=== PATIENT | female | born 1945 | race Caucasian/White ===

== ENCOUNTER 2017-03-29 06:40 | Inpatient (IN) | payer MEDICARE, OTHER ==
[2017-03-29] MEDS ORDERED: Meropenem 500 MG SDV ONE (06:43)
[2017-03-29] MEDS ORDERED: Acetaminophen 500 MG Tab PO ONE (07:05)
[2017-03-29] MEDS ORDERED: Scopolamine 1.5 MG Transdermal Patch TOP ONE (07:05)
[2017-03-29] MEDS ORDERED: Scopolamine 1.5 MG Transdermal Patch TOP SCH (07:15)
[2017-03-29] MEDS ORDERED: Dextrose 5%-Lactated Ringers 1,000 ML IV SCH ×2 (07:30→14:30)
[2017-03-29] MEDS ORDERED: Naloxone 0.4 MG/ML SDV IVPUSH PRN ×2 (07:46→18:43)
[2017-03-29] MEDS ORDERED: HYDROmorphone/Normal Saline 15 MG/30 ML PCA IV PRN ×2 (07:46→18:43)
[2017-03-29] MEDS: Celecoxib 200 MG Cap PO ONE ×2 (07:51→08:30)
[2017-03-29] MEDS ORDERED: fentaNYL 250 MCG/5 ML SDV ONE ×2 (07:52→10:52)
[2017-03-29] MEDS ORDERED: Dexamethasone 4 MG/ML SDV ONE (07:53)
[2017-03-29] MEDS ORDERED: Rocuronium 50 MG/5 ML Vial ONE (07:53)
[2017-03-29] MEDS ORDERED: Neostigmine Methylsulfate 1 MG/ML 5 ML Syringe ONE (07:53)
[2017-03-29] MEDS ORDERED: Ondansetron 4 MG/2 ML SDV ONE (07:53)
[2017-03-29] MEDS ORDERED: Glycopyrrolate 0.2 MG/ML 5 ML MDV ONE (07:53)
[2017-03-29] MEDS ORDERED: Propofol 200 MG/20 ML SDV ONE (07:53)
[2017-03-29] MEDS ORDERED: Succinylcholine 200 MG/10 ML MDV ONE (07:53)
[2017-03-29] MEDS ORDERED: Naloxone 0.4 MG/ML SDV IV PRN (07:54)
[2017-03-29] MEDS ORDERED: Acetaminophen Soln 650 MG/20.3 ML UD Cup PO ONE (08:45)
[2017-03-29] MEDS: cefOXitin 2 GM in Sodium Chloride 0.9% 50 ML IV ONE ×2 (10:07→10:32)
[2017-03-29] MEDS ORDERED: Lactated Ringers 1,000 ML ONE (11:05)
[2017-03-29] MEDS: Bupivacaine 0.5%/EPINEPHrine 1:200,000 50 ML MDV ONE ×2 (11:12→11:37)
[2017-03-29] MEDS ORDERED: hydrOXYzine HCl 100 MG/2 ML SDV IM ONE (12:18)
[2017-03-29] MEDS ORDERED: Labetalol 20 MG/4 ML Syringe IVPUSH ONE (12:53)
[2017-03-29] MEDS ORDERED: Labetalol 20 MG/4 ML Syringe IVPUSH PRN (15:00)
[2017-03-29] MEDS ORDERED: Metoclopramide 10 MG/2 ML SDV IVPUSH PRN (15:00)
[2017-03-29] MEDS ORDERED: SCOPOLAMINE PATCH CHECK TOP SCH (15:00)
[2017-03-29] MEDS ORDERED: diphenhydrAMINE 50 MG/ML SDV IVPUSH PRN (15:00)
[2017-03-29] MEDS ORDERED: hydrOXYzine HCl 100 MG/2 ML SDV IM PRN (15:00)
[2017-03-29] MEDS: Ondansetron 4 MG/2 ML SDV IVPUSH PRN ×2 (15:56→20:58)
[2017-03-29] MEDS ORDERED: MVI, Adult with Vitamin K 10 ML, Thiamine 200 MG, Chromium/Copper/Mang/Selen/Zn 1 ML in... IV SCH ×4 (16:00)
[2017-03-29] MEDS: Pantoprazole 40 MG Vial IVPUSH SCH (16:30)
[2017-03-29] MEDS: cefOXitin 2 GM in Sodium Chloride 0.9% 50 ML IV SCH ×2 (16:30→20:59)
[2017-03-29] MEDS: Acetaminophen Soln 650 MG/20.3 ML UD Cup PO SCH ×2 (16:31→21:01)
[2017-03-29] MEDS: Gabapentin 250 MG/5 ML Solution ML 470 ML Bottle PO SCH ×2 (20:34→21:00)
[2017-03-29] MEDS: Heparin Sodium 5,000 Units/ML Vial SUBCUT SCH (20:34)
[2017-03-30] MEDS: cefOXitin 2 GM in Sodium Chloride 0.9% 50 ML IV SCH ×2 (04:17→09:24)
[2017-03-30] MEDS: Acetaminophen Soln 650 MG/20.3 ML UD Cup PO SCH ×4 (04:17→23:04)
[2017-03-30] MEDS ORDERED: Celecoxib 200 MG Cap PO SCH (08:00)
[2017-03-30] MEDS: Heparin Sodium 5,000 Units/ML Vial SUBCUT SCH ×2 (08:14→19:15)
[2017-03-30] MEDS: Ondansetron 4 MG/2 ML SDV IVPUSH PRN (08:21)
[2017-03-30] MEDS: Gabapentin 250 MG/5 ML Solution ML 470 ML Bottle PO SCH ×4 (08:21→20:13)
[2017-03-30] MEDS: Sennosides 8.6 MG Tab PO SCH (12:08)
[2017-03-30] MEDS: Dextrose 5%-Lactated Ringers 1,000 ML IV SCH (13:30)
[2017-03-30] MEDS: Pantoprazole 40 MG Vial IVPUSH SCH (15:40)
[2017-03-30] MEDS: MVI, Adult with Vitamin K 10 ML, Thiamine 200 MG, Chromium/Copper/Mang/Selen/Zn 1 ML in... IV SCH ×4 (15:50)
--- NOTE | 2017-03-30 17:15 | PN ---
DATE OF SERVICE: 03/30/2017 The patient is postop day 1 from a revision of Noemi-en-Y gastric bypass done as a laparoscopic approach. Clinically, she had some nausea early on but that is now cleared. She was a little bit too sleepy in the early postoperative period and her FIRE OBSERVER settings have been turned down to a FIRE OBSERVER dose of 0.1 mg of the Dilaudid. upper GI x-ray looks good. Urine output has been satisfactory. Plan will be to back down the IV rate to 100 mL, now we will go through a step III diet today as she had nothing done with her gastrojejunostomy. She had some Senna Plus with the medication list and maximize activity and work with pulmonary toilet. Howie Schmid MD /[id number]
[2017-03-31] MEDS: Dextrose 5%-Lactated Ringers 1,000 ML IV SCH ×2 (01:47→12:59)
[2017-03-31] MEDS: Acetaminophen Soln 650 MG/20.3 ML UD Cup PO SCH (04:26)
[2017-03-31] MEDS ORDERED: Acetaminophen/HYDROcodone 325-5 MG Tab PO PRN (06:26)
--- NOTE | 2017-03-31 08:44 | PN ---
DATE OF SERVICE: 03/31/2017 SUBJECTIVE: Rosalinda is postop day #2. She reports that she is not able to swallow any pills at all. So, she has been refusing her Celebrex, her gabapentin, and Tylenol. She is using the FARM MANAGEMENT ADVISER and requests that she continue to have the FARM MANAGEMENT ADVISER today for pain. Secondly, she states that when she goes to walk, her legs will not "work." Nursing staff states that she stands with a walker and just is unable to move her legs and will sway from [id number]. Of concern, her last BM was 03/28/2017. She was started on senna 2 tabs yesterday, but she is requesting that she be given something stronger to have a bowel movement. REVIEW OF SYSTEMS: Remainder of review of systems was negative for any pertinent positives and negatives. OBJECTIVE: GENERAL: Rosalinda Cazares is a pleasant 71-year-old female. She is alert and orientated. VITAL SIGNS: TPR 99.4, 77, 16, and blood pressure 150/72. HEENT: Negative. NECK: Supple. HEART: Regular rate and rhythm. LUNGS: Clear. ABDOMEN: Dressings dry and intact. Abdominal binder is on. EXTREMITIES: Without peripheral edema. ASSESSMENT: Diagnostic laparoscopy with revision of jejunostomy component of the Noemi-en-Y gastric bypass surgery, separate small bowel resection, and placement of Interceed mesh to limit recurrent adhesive formation for partial small bowel obstruction secondary to angulation of the jejunostomy junction, segment of small bowel ischemia secondary to dissection of the Noemi limb. Date of surgery 03/29/2017. Surgeon, Howie Schmid MD. PLAN: 1. Discontinue gabapentin. 2. Discontinue Celebrex. 3. Discontinue oral Tylenol. The patient declines to take any liquid form of those 3 medications. 4. Continue with FARM MANAGEMENT ADVISER. 5. Milk of magnesia 30 mL one time followed by Dulcolax tabs two 1 hour later. 6. Good pulmonary toilet encouraged. 7. Dressing off and may shower. 8. We will evaluate p.r.n. or in a.m. Andree Bowers PA-C /[id number]
[2017-03-31] MEDS ORDERED: Cyanocobalamin (Vitamin B12) 1,000 MCG/ML SDV IM ONE (09:00)
[2017-03-31] MEDS ORDERED: HYDROmorphone/Normal Saline 15 MG/30 ML PCA IV PRN (09:27)
[2017-03-31] MEDS ORDERED: Naloxone 0.4 MG/ML SDV IV PRN (09:28)
[2017-03-31] MEDS ORDERED: Bisacodyl 5 MG Tab PO ONE (09:30)
[2017-03-31] MEDS: Sennosides 8.6 MG Tab PO SCH (10:16)
[2017-03-31] MEDS: Magnesium Hydroxide 400 MG/5 ML Susp 30 ML Cup PO ONE ×2 (10:16→10:19)
[2017-03-31] MEDS: Heparin Sodium 5,000 Units/ML Vial SUBCUT SCH ×2 (10:16→19:28)
[2017-03-31] MEDS: MVI, Adult with Vitamin K 10 ML, Thiamine 200 MG, Chromium/Copper/Mang/Selen/Zn 1 ML in... IV SCH ×4 (16:16)
[2017-03-31] MEDS: Pantoprazole 40 MG Vial IVPUSH SCH (16:17)
[2017-04-01] MEDS: Dextrose 5%-Lactated Ringers 1,000 ML IV SCH (00:43)
[2017-04-01] MEDS ORDERED: Acetaminophen/HYDROcodone 108-2.5 MG/5 ML Soln 15 ML UD Cup PO PRN (07:08)
[2017-04-01] MEDS ORDERED: Acetaminophen Soln 650 MG/20.3 ML UD Cup PO PRN (07:09)
--- NOTE | 2017-04-01 07:55 | PN ---
DATE OF SERVICE: 04/01/2017 SUBJECTIVE: Rosalinda had a temp max of 100.8 over the past 24 hours. Her last temp was 99.3. She has been up ambulating. She is ambulating with assist of one and holding onto her IV pole, which is much improved. Intake was 300, output 900. She is on a step 3 diet and she ate 25% of breakfast, 0% of lunch, and 25% of dinner. She states she is not a big eater and does not consume enough fluids. Pain has been controlled, she still is on the RAIL ENGINEER, and she has had multiple bowel movements. OBJECTIVE: GENERAL: Rosalinda Cazares is a pleasant 71-year-old female. VITAL SIGNS: TPR is 99.3, 86, 16, blood pressure 159/82. HEENT: Negative. NECK: Supple. HEART: Regular rate and rhythm. LUNGS: Clear. ABDOMEN: Abdominal binder has been on. Her sutures are in place. There is no redness or inflammation around the incision. She does have a faint pink papillary rash above her abdominal binder, chest, and a little bit up into the neck and nonpruritic. EXTREMITIES: SCDs are on and there is no peripheral edema. ASSESSMENT: Diagnostic laparoscopy with revision of jejunostomy component of the Noemi-en-Y gastric bypass surgery, separate small bowel resection, and placement of Interceed mesh to limit recurrent adhesive formation of a partial small bowel obstruction, secondary to angulation of the jejunostomy junction segment of small bowel ischemia, secondary to dissection of the Noemi limb, date of surgery 03/29/2017, surgeon Howie Schmid MD. PLAN: 1. Communication order written to drink 3 med cups of water or water with Crystal Light in it every hour record at bedside. 2. Hydrocodone/acetaminophen 100.8/2.5 mg per 5 mL, 15 mL every 4 hours p.r.n. pain. 3. Dietary consult. 4. Tylenol 650 mg liquid q.4 h. p.r.n. lesser pain. 5. Dietary consult. 6. Home care discussed. She does not feel like she needs Home Healthcare when discharged and states that she plans to have her sutures out at her Home Clinic and she plans to travel to [place], [place] as soon as possible. 7. Today, increase activity, good pulmonary toilet, and we will evaluate p.r.n. or in a.m. Andree Norby, PA-C /[id number]
[2017-04-01] MEDS ORDERED: FLU Vacc TS 2017-18 (65yr UP)/PF 180 MCG/0.5 ML Syringe IM ONE (09:00)
[2017-04-01] MEDS: Sennosides 8.6 MG Tab PO SCH (09:06)
[2017-04-01] MEDS ORDERED: Ondansetron 4 MG Tab.DIS PO PRN (09:31)
--- NOTE | 2017-04-01 09:36 | CR ---
Limited upper GI The patient is status post Noemi-en-Y gastric bypass. There is no extravasation of contrast. The gastr ic pouch empties readily into a nondilated Noemi limb. No complications are evident. Impression: 1. Status post Noemi-en-Y gastric bypass without evidence for complication.
[2017-04-01] MEDS: Heparin Sodium 5,000 Units/ML Vial SUBCUT SCH ×2 (09:45→20:21)
[2017-04-01] MEDS: MVI, Adult with Vitamin K 10 ML, Thiamine 200 MG, Chromium/Copper/Mang/Selen/Zn 1 ML in... IV SCH ×4 (15:42)
[2017-04-01] MEDS: HYDROmorphone 2 MG Tab PO PRN ×2 (15:42→21:21)
[2017-04-01] MEDS ORDERED: diphenhydrAMINE 25 MG Cap PO PRN (16:19)
[2017-04-01] MEDS ORDERED: Metoclopramide 10 MG Tab PO PRN (16:21)
[2017-04-01] MEDS ORDERED: Lansoprazole 30 MG Orally Disintegrating Tab.CR PO SCH (16:30)
[2017-04-01] MEDS ORDERED: Pantoprazole 40 MG Tab.CR PO SCH (16:30)
[2017-04-02] MEDS ORDERED: Acetaminophen 325 MG Tab PO PRN (06:53)
[2017-04-02] MEDS ORDERED: Simethicone 80 MG Tab.Chew PO PRN (06:53)
[2017-04-02 07:50] VITALS: BP 145/74
[2017-04-02] MEDS: Sennosides 8.6 MG Tab PO SCH (08:38)
[2017-04-02] MEDS: Heparin Sodium 5,000 Units/ML Vial SUBCUT SCH (08:41)
--- NOTE | 2017-04-03 02:26 | DISCH ---
ADMISSION DIAGNOSES: 1. Postprandial nausea. 2. Partial small bowel obstruction. 3. Status post Noemi-en-Y gastric bypass surgery. 4. Unspecified surgical malabsorption and B12 deficiency. 5. Essential hypertension. 6. Hyperlipidemia. 7. Coronary artery disease. 8. Depression. DISCHARGE DIAGNOSES: Diagnostic laparoscopy with revision of the jejunostomy component of the Noemi-en-Y gastric bypass surgery, separate small bowel resection and placement of Interceed mesh to limit recurrent adhesion formation of the partial small bowel obstruction, secondary to angulation of the jejunostomy junction segment of the small bowel ischemia, secondary to dissection of the Noemi limb. Date of surgery 03/29/2017 - surgeon, Howie Schmid M.D. HISTORY: Rosalinda is a 71-year-old female, who had a Noemi-en-Y gastric bypass surgery for weight loss on 03/13/2011. She has been having a 2-year history of postprandial abdominal pain and nausea. After preoperative evaluation, discussion of possible risks and possible complications, she wished to proceed with surgical procedure. HOSPITAL COURSE: Rosalinda had her surgery on 03/29/2017. She had no complications. On postop day #1, her SEAFOOD HARVESTER was decreased due to excessive sleepiness. Upper GI was negative. She was started on a step-3 gastric bypass diet. On postop day #2, her gabapentin, Celebrex, and Tylenol were discontinued. She states that she is unable to swallow any type of pills and was not going to be taking them anyway. She was given bowel stimulation and started to have bowel movements. On 04/01/2017, her oral intake was 300 mL. Due to the inability to take pills, she was started on hydrocodone and acetaminophen liquid, but this was changed to Dilaudid. She did not like the taste of the liquid. Her pain was well managed with the Dilaudid. Her oral intake was adequate at 1410. Activity was good. She was stable, and she received dietary instructions, and she was able to be discharged to home on 04/02/2017. PHYSICAL EXAMINATION: GENERAL: Rosalinda Cazares is a pleasant 71-year-old female. VITAL SIGNS: Height is 5 feet 5 inches, weight is 120 pounds, BMI is 20. TPR is 98, 87, 16. Blood pressure is 139/67. HEENT: Negative. NECK: Supple. HEART: Regular rate and rhythm. LUNGS: Clear. ABDOMEN: Sutures in place. Abdomen is soft, minimally tender. Abdominal binder is on. EXTREMITIES: Without peripheral edema. DISPOSITION: Discharged to home. CONDITION: Stable and improving. FOLLOWUP: She is to follow up with Andree Bowers PA-C, when she is home from [place] at [facility]. HOME MEDICATIONS: 1. Tylenol 650 mg oral q.4 hours. 2. Dilaudid 2 mg oral q.4 hours p.r.n. pain, #20. 3. Simethicone 80 mg oral q.4 hours chewable p.r.n. gas pain. She is to resume her home medications of, 1. Calcium citrate 1 tablet daily. 2. Vitamin B12 1000 mcg sublingual daily. 3. Nitrostat 0.4 mg sublingual as directed. 4. Children's Multivitamin twice daily. DIET AFTER DISCHARGE: Step-3 gastric bypass diet; advance as tolerated. Drink 8 to 10 glasses of water a day. ACTIVITY: As tolerated. No lifting greater than 10 pounds for 2 weeks. Driving: Do not drive on pain medication. Shower/bathing: May shower. Notify provider if any fever, increased pain, swelling, redness, drainage, nausea, or vomiting. Wound incision care: Keep site clean and dry. Wear abdominal binder for 2 weeks and then as tolerated. SPECIAL INSTRUCTIONS: 1. Use incentive spirometer 10 times every hour while awake. 2. When traveling, walk 10 minutes for every 2 hours in your car. 3. Wear LOKI supportive stockings to prevent blood clots in your legs. 4. Get your stitches removed between April 08, 2017 and April 10, 2017. Prescription was written.
--- NOTE | 2017-04-04 08:51 | OR ---
DATE OF PROCEDURE: 03/29/2017 PREOPERATIVE DIAGNOSIS: Partial small bowel obstruction. POSTOPERATIVE DIAGNOSES: 1. Partial small bowel obstruction secondary to angulation of the Noemi limb entering the jejunojejunostomy. 2. Segment of small bowel ischemia secondary to dissection of Onemi limb. OPERATIVE PROCEDURE: Diagnostic laparoscopy with: 1. Revision of jejunojejunostomy component of Noemi-en-Y gastric bypass (66984). 2. Separate small bowel resection (86211). 3. Placement of Interceed mesh to limit recurrent adhesion formation (94176). ANESTHESIA: General. PROGRAM EVALUATION CONSULTANT: Andree Bowers PA-C and GWEN Arreaga. INDICATION FOR PROCEDURE: This is a 71-year-old female presenting with symptoms of partial small bowel obstruction. Plan is to proceed with a diagnostic laparoscopy, laparotomy if necessary, and lysis of adhesions, and/or bowel resection as indicated. Potential risks including bleeding, infection, leaks from various GI tract closures, recurrent bowel obstruction over time, as well as possibility of cardiopulmonary, septic, or hemorrhagic complications leading to were discussed, and the patient wishes to proceed. DETAILS OF THE PROCEDURE: The patient was taken to the operating room, placed in a supine position. After general endotracheal anesthesia was induced, she was converted to a lithotomy position. Ordonez catheter was inserted and the abdomen prepped and draped. In the left lower quadrant, a transverse incision was made, and peritoneal cavity entered under direct vision with an Optiview trocar, inflated to 15 mmHg pressure with CO2. Laparoscope was then reinserted. No underlying trocar insertion site injuries were seen. Following this, eventually 5 additional trocars were placed across the upper and mid abdomen, and general exploration was undertaken. As one traced the Noemi limb down toward the jejunojejunostomy, there was noted be marked angulation of the jejunojejunostomy as the Noemi limb entered the anastomosis. As one dissected this free from the surrounding adhesions, it became evident that this was still going to be a problem. Given this, the decision was made to revise the jejunojejunostomy. The Noemi limb measured, at this time, around 150 cm. It was divided flush with the jejunojejunostomy. On further dissection, a portion of the small bowel became ischemic, the extremely distalmost aspect of the Noemi limb in 2 segments. This was resected and that bowel sent as a separate specimen. The anastomosis to complete the revision was then accomplished between what had been the common limb, roughly 20 cm distal to the original point of the jejunojejunostomy to the newly divided Noemi limb. This was set up such that the anastomosis would lay well anterior and toward the midline of the abdomen. The remaining previous anastomosis at the jejunojejunostomy lay quite nicely, at that point being a continuation of the biliopancreatic limb from a functional standpoint. The new anastomosis was then accomplished with 2 internal firings of the Endo-LYNDSEY javier loads and the common opening closed with purple load, the angles anastomosed, and the mesenteric defect approximated with some 0 Ethibond stitch, along with some fibrin sealant. At that point, no further problems were noted. The patient did have a fair bit of adhesions present initially, and to prevent adhesions between the viscera and the pelvic and abdominal wall, Interceed mesh was placed, and at that point, no further problems were noted. Trocars were removed. The fascia at the 12 mm sites was closed with 0 Vicryl stitch and the skin with 4- 0 Vicryl skin stitch. Dressing was applied. The patient was taken to the recovery room in satisfactory condition. Physician speech language pathology assistant, Andree Bowers, played an essential role in assisting in this case, helping to retract structures as needed, position the patient, as well as cutting sutures as indicated. Her presence improved patient's safety and decreased operative time. Howie Schmid MD /[id number]
== END 2017-04-02 10:00 | disposition home or self-care (01) | DRG 327 ==
LOC: JP.MS 06:40 → JP.SDS 06:40 → EDSTATUS 11:30 → JP.2SS 11:50 → JP.MS 03-30 13:58
PROVIDERS: ADMIT Surgery; ATTEND Surgery
PROC: 0D164ZA Bypass Stomach to Jejunum, Percutaneous Endoscopic Approach (ICD-10-PCS; principal; 2017-03-29)
PROC: 0DB84ZZ Excision of Small Intestine, Percutaneous Endoscopic Approach (ICD-10-PCS; 2017-03-29)
PROC: 3E0M05Z Introduction of Adhesion Barrier into Peritoneal Cavity, Open Approach (ICD-10-PCS; 2017-03-29)
DX: K56.51 Intestinal adhesions [bands], with partial obstruction (principal); K91.2 Postsurgical malabsorption, not elsewhere classified; Z23 Encounter for immunization; E53.8 Deficiency of other specified B group vitamins; I10 Essential (primary) hypertension; E78.5 Hyperlipidemia, unspecified; I25.10 Atherosclerotic heart disease of native coronary artery without angina pectoris; F32.9 Major depressive disorder, single episode, unspecified; R13.19 Other dysphagia; Z98.84 Bariatric surgery status; Z98.0 Intestinal bypass and anastomosis status
CPT/HCPCS: 36415; 74240; 74240-26; 80053; 83735; 84100; 85027; 87493; 88307; 90662; 94762; A9270-GY; C9113; G0008; J0330; J0694; J1100; J1170; J1644; J2185; J2405; J2704; J2710; J3010; J3410; J3411; J3420; J7040; J7042; J7050; J7120